=== PATIENT | female | born 1980 | race Caucasian/White ===

== ENCOUNTER → 2017-01-25 | Outpatient (CLI) | payer OTHER ==
[~2017-01-25] MED LIST: ZITHROMAX Z PA250 MG PO
== END | disposition home or self-care (01) ==
LOC: US 13:00
DX: I83.92 Asymptomatic varicose veins of left lower extremity (principal); M79.662 Pain in left lower leg

== ENCOUNTER 2017-04-10 23:29 | Emergency (ER) | payer OTHER ==
[~2017-04-10] VITALS: Ht 167.6 cm; Wt 59.0 kg
[2017-04-11 00:24] LABS: BASO % 0.6 % (0.0-1.0); EOS # 0.1 10*3/uL (0.0-0.4); EOS % 1.9 % (1.0-4.0); HEMATOCRIT 33.4 % (37.0-47.0); LYMPH # 1.7 10*3/uL (1.3-4.4); MEAN CELL VOLUME 88.6 fl (81.0-99.0); MEAN CORPUSCULAR HGB 29.2 pg (27.0-31.0); MEAN CORPUSCULAR HGB CONC 32.9 g/dl (33.0-37.0); MONO # 0.6 10*3/uL (0.1-1.0); MONO % 8.7 % (3.0-9.0); NEUT # 4.3 10*3/uL (2.3-7.9); NEUT % 63.5 % (47.0-73.0); PLATELET COUNT AUTOMATED 252 10*3/uL (130-400); RED BLOOD COUNT 3.77 10*6/uL (4.10-5.10); RED CELL DISTRI WIDTH 13.5 % (0-14.5); WHITE BLOOD COUNT 6.8 10*3/uL (4.8-10.8)
== END 2017-04-11 02:15 | disposition home or self-care (01) ==
LOC: ED 23:29
PROVIDERS: Physician Assistant
DX: O46.91 Antepartum hemorrhage, unspecified, first trimester (principal); O26.891 Other specified pregnancy related conditions, first trimester; M54.5 Low back pain; R42 Dizziness and giddiness; Z3A.01 Less than 8 weeks gestation of pregnancy; Z88.0 Allergy status to penicillin

== ENCOUNTER 2018-09-22 11:45 | Emergency (ER) | payer OTHER ==
[~2018-09-22] VITALS: Ht 167.6 cm; Wt 57.6 kg
--- NOTE | ~2018-09-22 | EKG ---
[place], [place] ELECTROCARDIOGRAM REPORT NAME: ASIA CONNER UNIT #: [id number] ROOM: DOCTOR: EPIPHANY DRAFT REPORT BIRTHDATE: [birth year] [facility] Test Date: 2018-09-22 Test Time: 11:46:04 Pat Name: ASIA CONNER Department: Room: Gender: F Proof Passer: : 1980 Requested By: MITCH LARIOS Order Number: [id number] Reading MD: Agustín Ramirez MD Measurements Intervals [place] Rate: 76 P: 65 MI: 123 QRS: 47 QRSD: 93 T: 26 QT: 367 QTc: 413 Interpretive Statements Sinus rhythm Nonspecific ST T changes Electronically Signed On 09-24-2018 9:37:02 PDT by Agustín Ramirez MD CM:EKGRPT:ELECTROCARDIOGRAM REPORT [id number] MITCH MUSA DRAFT REPORT MITCH LARIOS M.D.
[2018-09-22 12:01] LABS: BASO % 0.4 % (0.0-1.0); EOS # 0.1 10*3/uL (0.0-0.4); EOS % 1.1 % (1.0-4.0); HEMATOCRIT 38.6 % (37.0-47.0); HEMOGLOBIN 12.4 g/dl (12.0-16.0); LYMPH # 1.6 10*3/uL (1.3-4.4); LYMPH % 20.8 % (27.0-41.0); MEAN CELL VOLUME 94.1 fl (81.0-99.0); MEAN CORPUSCULAR HGB 30.2 pg (27.0-31.0); MEAN CORPUSCULAR HGB CONC 32.1 g/dl (33.0-37.0); MEAN PLATELET VOLUME 9.5 fl (9.6-12.3); MONO # 0.6 10*3/uL (0.1-1.0); MONO % 7.8 % (3.0-9.0); NEUT # 5.2 10*3/uL (2.3-7.9); NEUT % 69.6 % (47.0-73.0); PLATELET COUNT AUTOMATED 321 10*3/uL (130-400); RED CELL DISTRI WIDTH 15.1 % (0-14.5); WHITE BLOOD COUNT 7.5 10*3/uL (4.8-10.8)
[2018-09-22 12:13] LABS: ACT PARTIAL THROMBO TIME 27.2 SECONDS (20.0-32.1); INTERNATIONAL NORM RATIO 0.9 (2.0-3.5)
[2018-09-22 12:18] LABS: ALBUMIN 3.8 gm/dl (3.1-4.5); ALKALINE PHOSPHATASE 90 U/L (45-117); BUN 13 mg/dl (7-24); CHLORIDE 106 mmol/L (98-107); CREATININE 0.69 mg/dL (0.55-1.02); POTASSIUM 3.9 mmol/L (3.5-5.1); SGOT/AST 12 IU/L (3-35); SGPT/ALT 18 U/L (12-78); SODIUM 140 mmol/L (136-145); TOTAL PROTEIN 7.6 gm/dL (6.4-8.2)
[2018-09-22 12:32] LABS: TROPONIN I < 0.015 ng/ml (<0.045)
[2018-09-22 12:56] LABS: BILIRUBIN NEGATIVE (NEGATIVE); BLOOD 2+ (NEGATIVE); CLARITY SL CLOUDY (CLEAR); COLOR YELLOW (YELLOW); GLUCOSE NEGATIVE (NEGATIVE); KETONE NEGATIVE (NEGATIVE); LEUKO ESTERASE NEGATIVE (NEGATIVE); NITRITE NEGATIVE (NEGATIVE); UROBILINOGEN 0.2 E.U./dl (0.2-1.0)
[2018-09-22 13:15] LABS: BACTERIA 1+; MUCOUS 2+
[2018-09-22] MEDS ORDERED: IBUPROFEN600 MG PO (14:30)
== END 2018-09-22 14:32 | disposition home or self-care (01) ==
LOC: ED 11:45
PROVIDERS: Emergency Medicine; Physician Assistant
DX: R09.1 Pleurisy (principal); Z88.0 Allergy status to penicillin